=== PATIENT | female | born 1960 | race Caucasian/White ===

== ENCOUNTER 2021-09-26 23:33 | Inpatient (IN) | payer BC ==
[~2021-09-26] VITALS: Ht 167.6 cm; Wt 77.3 kg
[2021-09-27] VITALS (9 sets, daily range): BP systolic 113–150; BP diastolic 61–74
[2021-09-27] LABS: BASOPHILS % (AUTO) 0.4 % (0-1); EOSINOPHILS # (AUTO) 0.1 X10'3 (0-0.9); HEMATOCRIT 43.6 % (35.0-45.0); HEMOGLOBIN 14.7 g/dl (12.0-16.0); LYMPHOCYTES # (AUTO) 2.6 X10'3 (1.1-4.8); LYMPHOCYTES % (AUTO) 36.5 % (21-51); MEAN CORPUSCULAR HEMOGLOBIN 30.9 PG (27.0-31.0); MEAN CORPUSCULAR HGB CONC 33.7 g/dL (33.0-36.5); MEAN CORPUSCULAR VOLUME 91.8 FL (78-98); MEAN PLATELET VOLUME 8.7 FL (7.4-10.4); MONOCYTES # (AUTO) 0.7 X10'3 (0-0.9); MONOCYTES % (AUTO) 9.4 % (2-12); NEUTROPHILS # (AUTO) 3.8 X10'3 (1.8-7.7); NEUTROPHILS % (AUTO) 52.7 % (42-75); PLATELET COUNT 303 X10'3 (140-440); RED BLOOD COUNT 4.75 X10'6 (4.20-5.60); WHITE BLOOD COUNT 7.2 X10'3 (4.5-11.0)
[2021-09-27 00:16] LABS: ALANINE AMINOTRANSFERASE 24 U/L (12-78); ALBUMIN/GLOBULIN RATIO 1.1 (1.1-1.5); ALKALINE PHOSPHATASE 77 IU/L (46-116); ANION GAP 10 (8-16); ASPARTATE AMINO TRANSFERASE 17 U/L (10-37); BILIRUBIN,TOTAL 0.4 MG/DL (0.1-1.0); BLOOD UREA NITROGEN 29 MG/DL (7-18); BUN/CREATININE RATIO 30.9 (6.6-38.0); CALCIUM 9.2 MG/DL (8.5-10.1); CHLORIDE 108 MMOL/L (99-107); CREATININE 0.94 MG/DL (0.40-0.90); GLUCOSE 161 MG/DL (70-104); POTASSIUM 3.2 MMOL/L (3.5-5.1); SODIUM 142 MMOL/L (135-145); TOTAL CARBON DIOXIDE 23.6 MMOL/L (24-32); TOTAL PROTEIN 7.5 G/DL (6.4-8.2); eGFR 60 ML/MIN
[2021-09-27] MEDS ORDERED: aspirin 325mg tablet, delayed-release (Ecotrin) PO ONE (00:40)
[2021-09-27] MEDS ORDERED: morphine 2 MG/ML inj. syringe IV PRN (02:00)
[2021-09-27] MEDS ORDERED: mag hydrox/Alum hydrox/simeth 30ml oral suspension PO PRN (02:00)
[2021-09-27] MEDS ORDERED: magnesium hydroxide 30ml (MOM) UD suspension PO PRN (02:00)
[2021-09-27] MEDS ORDERED: magnesium Cl slow-release 64mg tablet PO PRN (02:00)
[2021-09-27] MEDS ORDERED: ondansetron/PF 4mg/2ml inj IV PRN (02:00)
[2021-09-27] MEDS ORDERED: HYDROcodone/acetaminophen 10/325mg tab PO PRN (02:00)
[2021-09-27] MEDS ORDERED: magnesium 2GM in 50ml NS 50 ML IV PRN (02:00)
[2021-09-27] MEDS ORDERED: HYDROcodone/acetaminophen 5mg/325mg tablet PO PRN (02:00)
[2021-09-27] MEDS ORDERED: POTASSIUM BICARB 20meq eff tab 20 MEQ TABLET.EFF PO PRN ×2 (02:00)
[2021-09-27] MEDS ORDERED: magnesium 4gm in 100ml NS 100 ML IV PRN (02:00)
[2021-09-27] MEDS ORDERED: potassium CL 10mEq/100ml bag 100 ML IV PRN (02:00)
[2021-09-27] MEDS ORDERED: acetaminophen 325mg tablet PO PRN ×2 (02:00)
[2021-09-27] MEDS ORDERED: aminophylline 250mg/10ml inj. IV PRN (02:20)
[2021-09-27] MEDS ORDERED: regadenoson 0.4mg/5ml syringe IV PRN (02:20)
[2021-09-27] MEDS ORDERED: nitroGLYCERIN 0.4mg SUBLingual tab SL PRN (02:20)
[2021-09-27] MEDS ORDERED: metoprolol tartrate 1mg/ml inj IV PRN (02:20)
[2021-09-27] MEDS ORDERED: NO HOME MEDS (02:29)
--- NOTE | 2021-09-27 03:00 | NUR ---
Pt pink, alert, no acute/resp distress. Bed in lowest position, wheels locked, rail 2/2 up, call pearson in reach. at bedside.
[2021-09-27 03:15] LABS: MAGNESIUM 2.1 MG/DL (1.5-2.4); POTASSIUM 3.5 MMOL/L (3.5-5.1)
[2021-09-27 03:31] LABS: HEMOGLOBIN A1C 5.7 % (4.5-6.2)
--- NOTE | 2021-09-27 03:49 | NUR ---
Pt pink, alert, no acute/resp distress. Bed in lowest position, wheels locked, rail 2/2 up, call pearson in reach. PIV site c/d/i s complication. No c/o chest pain. at bedside.
--- NOTE | 2021-09-27 06:14 | NUR ---
Handoff report to dayshift RN
--- NOTE | 2021-09-27 06:41 | NUR ---
visitor at bedside.
[2021-09-27] MEDS ORDERED: enoxaparin 40mg/0.4ml syringe SUBCUT SCH (08:00)
[2021-09-27] MEDS ORDERED: K and/or MAG REPLACEMENT MC SCH (08:00)
[2021-09-27] MEDS ORDERED: docusate sod 100mg capsule PO SCH (08:00)
--- NOTE | 2021-09-27 08:41 | NUR ---
pt to nuc med with RN, pt is on monitor
--- NOTE | 2021-09-27 08:45 | NUR ---
patient taken to [facility] for stress test.
[2021-09-27] MEDS ORDERED: aminophylline 500mg/20ml vial ONE (08:57)
[2021-09-27] MEDS ORDERED: iohexol 300mg/ml 100ml inj. ONE (09:02)
--- NOTE | 2021-09-27 10:25 | NUR ---
Assumed care of patient, no SOB, able to communicate needs effectivley to staff, no c/o pain present, able to ambulate self.
--- NOTE | 2021-09-27 11:45 | NUR ---
Paged Dr Osei PAGER ID: [phone] MESSAGE: [phone]. Jeannie Mcknight. Albertina was neg. Pending CT chest/abd/pelvis results. Can pt eat? Thx Steffanie [phone]
--- NOTE | 2021-09-27 14:22 | NUR ---
Two nurse skin assessment obtained. JOSTIN RN and [employer]ER
--- NOTE | 2021-09-27 15:00 | NUR ---
Patient discharging, PIV removed from R. wrist, no c/o pain present pressure dressing applied. Tele removed and returned. All personal belongings on person, at bedside. Discharge packet reviewed with patient and spouse. Patient to make f/u with primary physician. Patient dressed herself and walked to elevator with staff and spouse.
--- NOTE | 2021-09-27 16:28 | NUR ---
Orientee documentation: I have reviewed and agree with all interventions, assessments performed and documented by YANIV Reynolds II.
== END 2021-09-27 15:05 | disposition home or self-care (01) | DRG 313 ==
LOC: ER 23:34 → ED HOLD 09-27 02:05 → PCU 3S 09-27 10:22
PROVIDERS: ADMIT Internal Medicine; ATTEND Internal Medicine
PROC: 4A02XM4 Measurement of Cardiac Total Activity, External Approach (ICD-10-PCS; principal; 2021-09-27)
PROC: 3E033HZ Introduction of Radioactive Substance into Peripheral Vein, Percutaneous Approach (ICD-10-PCS; 2021-09-27)
PROC: BW251ZZ Computerized Tomography (CT Scan) of Chest, Abdomen and Pelvis using Low Osmolar Contrast (ICD-10-PCS; 2021-09-27)
DX: R07.89 Other chest pain (principal); E87.6 Hypokalemia; R77.8 Other specified abnormalities of plasma proteins; Z90.710 Acquired absence of both cervix and uterus
CPT/HCPCS: 36415; 71045; 71260; 74177; 78452; 80053; 83036; 83735; 83880; 84132; 84484; 85025; 87081; 93005; 93017; 93306; 99285; A9500; G0378; J0280; J2785; Q9967